=== PATIENT | male | born 1990 | race Hispanic/Latino ===

== ENCOUNTER 2019-03-23 11:15 | Emergency (ER) | payer BC, SELFPAY ==
--- NOTE | 2019-03-23 12:28 | RAD ---
XR Finger(s) Lt Min 2 View: 03/23/2019 12:09 PM CLINICAL INDICATION: Laceration COMPARISON: None. FINDINGS: Fracture:No fracture. Arthropathy:None of significance. Incidental findings:Soft tissue irregularity at the dorsal aspect of the distal third digit IMPRESSION: 1. No acute osseous abnormality.
[2019-03-23] MEDS ORDERED: diphenhydrAMINE 25 MG CAP ONE (15:36)
[2019-03-23] MEDS ORDERED: Bacitracin 1 PK ONE (15:56)
[2019-03-23] MEDS ORDERED: Acetaminophen/Codeine 30-300mg Tablet ONE (16:03)
== END 2019-03-23 16:08 | disposition home or self-care (01) ==
LOC: ERS 11:15
DX: S66.323A Laceration of extensor muscle, fascia and tendon of left middle finger at wrist and hand level, initial encounter (principal); F17.210 Nicotine dependence, cigarettes, uncomplicated; F41.9 Anxiety disorder, unspecified; G43.909 Migraine, unspecified, not intractable, without status migrainosus; W26.8XXA Contact with other sharp object(s), not elsewhere classified, initial encounter
CPT/HCPCS: 12002; Q0163

== ENCOUNTER 2019-05-08 16:15 | Emergency (ER) | payer SELFPAY | END 2019-05-08 16:50 | disposition home or self-care (01) | LOC: ERS 16:15 | DX: T81.41XA Infection following a procedure, superficial incisional surgical site, initial encounter (principal); F17.210 Nicotine dependence, cigarettes, uncomplicated; F41.9 Anxiety disorder, unspecified; G43.909 Migraine, unspecified, not intractable, without status migrainosus; W26.8XXA Contact with other sharp object(s), not elsewhere classified, initial encounter | CPT/HCPCS: 99282 ==

== ENCOUNTER 2020-06-11 05:48 | Emergency (ER) | payer SELFPAY ==
[2020-06-11] MEDS ORDERED: Ondansetron PF 4 MG/2 ML Vial ONE (05:59)
[2020-06-11] MEDS ORDERED: Lorazepam 2 MG/ML VIAL ONE (06:15)
[2020-06-11 06:16] LABS: #Basophils 0.1 thou/uL (0.0-0.2); #Eosinphils 0.4 thou/uL (0.0-0.7); Hemoglobin 14.4 g/dL (14.0-18.0); Mean Corpuscular HGB CONC 33.5 g/dL (32.0-36.0); Mean Corpuscular Volume 91.6 fL (78.0-98.0); Mean Platelet Volume 7.8 fL (7.4-10.4); Platelet Count 346 thou/uL (130-400); RBC Distribution Width 12.5 % (11.5-14.5)
[2020-06-11 06:20] LABS: #Lymphocytes 3.3 thou/uL (1.20-3.40); #Monocytes 0.8 thou/uL (0.11-0.59); #Neutrophils 7.8 thou/uL (1.40-6.50); %Basophils 0.9 % (0.0-1.0); %Eosinophils 2.9 % (0.0-10.0); %Lymphocytes 26.9 % (21.0-51.0); %Monocytes 6.8 % (0.0-10.0); %Neutrophils 62.5 % (42.0-75.0); Mean Corpuscular Hemoglobin 30.6 pg (27.0-31.0); White Blood Cell (WBC) Count 12.4 thou/uL (4.8-10.8)
[2020-06-11 06:37] LABS: Acetaminophen Less than 6.0 mcg/mL (10.0-30.0); Alcohol Less than 10 mg/dL (Less than 10); CK (CPK) 258 U/L (30-200); Salicylate Less than 8.0 mg/dL (15.0-30.0)
[2020-06-11 06:38] LABS: ALT (SGPT) 11 U/L (8-55); AST (SGOT) 15 U/L (5-34); Albumin 4.3 g/dL (3.5-5.0); Alkaline Phosphatase 68 U/L (40-110); Anion Gap 23 mmol/L (10-20); BUN (Urea Nitrogen) 16 mg/dL (8.9-20.6); Bilirubin, Total 0.3 mg/dL (0.2-1.2); Calc. Creatinine Clearance 0 mL/min (70-130); Calcium 8.9 mg/dL (7.8-10.44); Carbon Dioxide 15 mmol/L (22-29); Chloride 100 mmol/L (98-107); Glucose 249 mg/dL (70-105); Potassium 3.1 mmol/L (3.5-5.1); Protein, Total 7.3 g/dL (6.0-8.3); Sodium 135 mmol/L (136-145)
[2020-06-11 07:30] LABS: Amphetamine Detected (NotDetected); Barbiturates Screen Not Detected (NotDetected); Benzodiazepine Screen Not Detected (NotDetected); Cocaine Metabolite Screen Not Detected (NotDetected); Medtox Control Line Valid? VALID (VALID); Medtox Reader # READER 4; Methadone Not Detected (NotDetected); Methamphetamine Detected (NotDetected); Opiate Screen Not Detected (NotDetected); Oxycodone Screen Not Detected (NotDetected); Phencyclidine (PCP) Not Detected (NotDetected); THC/Cannabinoid Screen Detected (NotDetected); Tricyclic Screen Not Detected (NotDetected)
== END 2020-06-11 10:50 | disposition home or self-care (01) ==
LOC: ERS 05:48
DX: F15.10 Other stimulant abuse, uncomplicated (principal); F17.210 Nicotine dependence, cigarettes, uncomplicated; G43.909 Migraine, unspecified, not intractable, without status migrainosus
CPT/HCPCS: 36416; 51701; 80053; 80306; 80307; 82550; 85025; 96374; 96375; J2060; J2405

== ENCOUNTER 2021-12-22 20:26 | Emergency (ER) | payer SELFPAY ==
[2021-12-22] MEDS ORDERED: Ibuprofen 800 MG TAB ONE (23:02)
== END 2021-12-22 23:29 | disposition home or self-care (01) ==
LOC: ERS 20:26
DX: B34.9 Viral infection, unspecified (principal); F17.210 Nicotine dependence, cigarettes, uncomplicated; Z20.822 Contact with and (suspected) exposure to COVID-19
CPT/HCPCS: 87804; U0003; U0005

== ENCOUNTER 2022-01-09 01:01 | Emergency (ER) | payer SELFPAY | END 2022-01-09 02:42 | LOC: ERS 01:01 | DX: R09.81 Nasal congestion (principal); F17.210 Nicotine dependence, cigarettes, uncomplicated | CPT/HCPCS: 99283 ==